=== PATIENT | male | born 1990 | race African-American/Black ===

== ENCOUNTER 2016-10-21 13:36 | Emergency (ER) ==
[2016-10-21] MEDS ORDERED: ZITHROMAX PO ONE (14:36)
[2016-10-21] MEDS ORDERED: ROCEPHIN IM ONE (14:36)
[2016-10-21] MEDS ORDERED: XYLOCAINE-MPF 1% INJ ONE (14:36)
[2016-10-21] MEDS ORDERED: FLAGYL PO ONE (14:36)
[2016-10-21] MEDS ORDERED: FLAGYL ONE ×2 (14:48→14:58)
--- NOTE | 2016-10-21 14:52 | PROVIDER DOCUMENTATION ---
HPI-Male Problem - General Source: patient - History of Present Illness-Male Location of Complaint: reports: urethral Radiation: reports: none Quality of Pain: reports: none Severity in ED: reports: mild Onset/Duration: reports: unsure, this morning Timing: reports: still present, constant Context/Activities at Onset: reports: none Urinary Symptoms: reports: no symptoms Sexual intercourse history: reports: Less Than 2 Months Ago, Single Partner Contraception: reports: none Associated Symptoms: reports: other (discharge) Associated Symptoms: reports: denies symptoms Similar Symptoms Previously?: Yes Recently seen or treated by another doctor?: No <Asaf Franks - Last Filed: 10/21/16 14:48> <Teresita Donato - Last Filed: 10/21/16 15:00> - General Chief Complaint: Male Stated Complaint: SORE THROAT Time Seen by Provider: 10/21/16 14:30 Allergies/Adverse Reactions: Patient Allergies Allergy/AdvReac Type Severity Reaction Status Date / Time No Known Allergies Allergy Verified 03/29/16 11:29 Home Medications: Home Medication List Medication Instructions Recorded Confirmed Last Taken Type No Home Medications 10/21/16 10/21/16 Unknown History - History of Present Illness-Male Nature of Presenting Problem: pt is a 26 y/o M that presents to the Er with white discharge from penis this am. concerned to have std. he recently had sex with new partner( believes its her fault, but had similar symptoms 6 years ago). Denies swelling to testicle or penis. (Asaf Franks) Review of Systems - Adult - REVIEW OF SYSTEMS - ADULT Constitutional: reports: no symptoms reported Eyes: reports: no symptoms reported Ears, Nose, Mouth & Throat: reports: no symptoms reported Cardiovascular: reports: no symptoms reported Respiratory: reports: no symptoms reported Gastrointestinal: reports: no symptoms reported Genitourinary: reports: discharge. denies: flank pain Musculoskeletal: reports: no symptoms reported Integumentary: reports: no symptoms reported Neurological: reports: no symptoms reported Psychiatric: reports: no symptoms reported Endocrine: reports: no symptoms reported Hematologic/Lymphatic: reports: no symptoms reported Allergic/Immunologic: reports: no symptoms reported All Other Systems: Reviewed and Negative <Asaf Franks - Last Filed: 10/21/16 14:48> Past History - Adult - PAST MEDICAL HISTORY-ADULT Review of Records: reports: Old Records Reviewed, Nursing Assessment Review, Medications Reviewed Major Childhood Illnesses: reports: denies history Cardiovascular: reports: denies history Respiratory: reports: denies history Gastrointestinal: reports: denies history Obstetrical/Gynecological: reports: denies history Genitourinary: reports: denies history Musculoskeletal: reports: denies history Neurological: reports: denies history Endocrine/Immune: reports: denies history Other Conditions: reports: denies history - PRIOR SURGERIES/PROCEDURES Surgical/Procedure History: reports: none - PRIOR HOSPITALIZATIONS Prior Hospitalizations: reports: none - IMMUNIZATION STATUS Childhood Immunizations: See Nurse Assessment Flu Vaccine: See Nurse Assessment - FAMILY HISTORY Family History: reviewed, not pertinent - SOCIAL HISTORY Smoking: cigarettes, less than 1 pack/day Alcohol Use Frequency: occasionally Living Situation: family <Asaf Franks - Last Filed: 10/21/16 14:48> Physical Exam-General - PHYSICAL EXAM-ADULT Initial Vital Signs Reviewed: Yes - CONSTITUTIONAL General Appearance: alert, no apparent distress - EYES Eyes: PERRL/EOMI, pink conjunctivae - HEAD, EARS, NOSE, MOUTH & THROAT HENMT: normocephalic/atraumatic, moist mucous membranes, normal ENT inspection - NECK Neck: non-tender, full range of motion, normal inspection - RESPIRATORY Respiratory: lungs clear, normal breath sounds, no respiratory distress, no accessory muscle use - CARDIOVASCULAR Cardiovascular: regular rate, rhythm, no edema, no murmur - GASTROINTESTINAL (ABDOMEN) Abdominal Exam: normal bowel sounds, non tender, soft, no organomegaly, no pulsatile mass - GENITOURINARY Male Genitalia: normal prostate, circumcised. negative: erythema, epididymal tenderness, herpes-like lesion, hernia mass - MUSCULOSKELETAL Back Exam: no CVA tenderness, no vertebral tenderness Extremity: normal range of motion, normal inspection - SKIN Integumentary: normal color, normal turgor, warm/dry - NEUROLOGIC Neurologic: grossly normal, no motor/sensory deficits - PSYCHIATRIC Psych/Mental Status: normal mood/affect, normal thought content, normal thought process, oriented x 3 <Asaf Franks - Last Filed: 10/21/16 14:48> Progress <Asaf Franks - Last Filed: 10/21/16 14:48> <Teresita Donato - Last Filed: 10/21/16 15:00> - PLAN OF CARE/RESULTS Progress/Plan/Lab Results: Vital Signs Temp Pulse Resp BP Pulse Ox 10/21/16 14:02 98 F 101 H 18 145/75 98 No Known Allergies Allergy (Verified 03/29/16 11:29) No Home Medications 10/21/16 Laboratory 10/21/16 14:53 Urine Source CLEAN CATCH Urine Color YELLOW Urine Clarity CLEAR Urine pH 7.0 Ur Specific Lyles 1.010 Urine Protein TRACE A Urine Ketones NEGATIVE Urine Blood NEGATIVE Urine Nitrite NEGATIVE Urine Bilirubin NEGATIVE Urine Urobilinogen NORMAL Urine WBC 1+ A Urine Glucose NEGATIVE Orders Category Date Time Status UA [URINALYSIS PL W/POSS RFLX CULT] [URINALYSIS] Stat Lab 10/21/16 14:53 Results Azithromycin [Zithromax] Med 10/21/16 14:36 Discontinued 1,000 mg PO NOW ONE CefTRIAXONE [Rocephin] Med 10/21/16 14:36 Discontinued 250 mg IM NOW ONE Lidocaine 1% Pf [Xylocaine-Mpf 1%] Med 10/21/16 14:36 Discontinued 5 ml INJ NOW ONE Metronidazole [Flagyl] Med 10/21/16 14:58 Discontinued 1,500 mg .ROUTE .STK-MED ONE Metronidazole [Flagyl] Med 10/21/16 14:36 Discontinued 2,000 mg PO NOW ONE Metronidazole [Flagyl] Med 10/21/16 14:48 Discontinued 500 mg .ROUTE .STK-MED ONE (Teresita Donato) Departure <Asaf Franks - Last Filed: 10/21/16 14:48> - Departure Time of Disposition Order: 15:00 Certified Medical Emergency: Emergent <Teresita Donato - Last Filed: 10/21/16 15:00> - Departure DIAGNOSIS: STD (male) Disposition: HOME 01 Condition: Stable Additional Instructions: You can go to the health department for STD testing ED Follow Up Instructions: You have been treated by a care provider in the Emergency Department. These instructions are being provided to you so you can have an understanding of how to care for yourself upon discharge. Upon discharge from the Emergency Department, you are responsible for making arrangements for follow-up care by a physician of your choice. Take all prescribed medications as directed. Return to the Emergency Department immediately for any new or worsening symptoms. You may call the Physician Referral phone number at [phone] to obtain a list of Physicians who are taking new patients. Attestation - Scribe Verification/Attestation Scribe:: Asaf Franks Acting as Scribe for:: Teresita Donato Scribe documention review:: This chart was documented by a scribe and accurately reflects the service the provider performed and the decisions made by the provider. - Physician/ EMILI Attestation Patient care was provided by Advanced Practice Provider:: Yes Advanced Practice Provider:: Teresita Donato Advanced Practice Provider documentation review:: The Mid-level provider documentation, treatment plan and medical decision making was reviewed by the physician who agrees with all treatment and medical decision making by the MLP. <Asaf Franks - Last Filed: 10/21/16 14:48> Physician Attestation - Physician Attestation I, the provider, attest to the following statement:: Teresita Donato Physician documentation Attestation:: This documentation recorded by the scribe accurately reflects the service I personally performed and the decisions made by me. <Asaf Franks - Last Filed: 10/21/16 14:48>
[2016-10-21 14:54] LABS: URINE SOURCE CLEAN CATCH
[2016-10-21 14:58] LABS: BILIRUBIN URINE NEGATIVE (NEGATIVE); BLOOD URINE NEGATIVE (NEGATIVE); CLARITY CLEAR (CLEAR); COLOR YELLOW; GLUCOSE URINE NEGATIVE (NEGATIVE); LEUKOCYTES URINE 1+ (NEGATIVE); NITRITE URINE NEGATIVE (NEGATIVE); PROTEIN URINE TRACE mg/dL (NEGATIVE); UROBILINOGEN URINE NORMAL
[2016-10-21 15:07] LABS: URINE CULTURE PL NEEDED? YES; URINE EPITHELIAL CELLS <10 /HPF (<10); URINE RBC <10 /HPF (<10)
[2016-10-21 15:42] VITALS: BP 134/079
== END 2016-10-21 15:35 | disposition home or self-care (01) ==
LOC: P.ED 13:36
DX: A64 Unspecified sexually transmitted disease (principal); R36.9 Urethral discharge, unspecified; F17.210 Nicotine dependence, cigarettes, uncomplicated
CPT/HCPCS: 81001; 87088; 96372; J0696

== ENCOUNTER 2016-10-26 03:32 | Emergency (ER) ==
[2016-10-26 03:38] VITALS: BP 150/74
--- NOTE | 2016-10-26 03:50 | PROVIDER DOCUMENTATION ---
HPI-Male Problem - General Chief Complaint: Male Stated Complaint: RETURN/RECHECK Time Seen by Provider: 10/26/16 03:41 Source: patient Allergies/Adverse Reactions: Patient Allergies Allergy/AdvReac Type Severity Reaction Status Date / Time No Known Allergies Allergy Verified 10/26/16 03:38 Home Medications: Home Medication List Medication Instructions Recorded Confirmed Last Taken Type No Home Medications 10/21/16 10/26/16 Unknown History - History of Present Illness-Male Nature of Presenting Problem: pt was recently seen for possible STD and given empiric treatment om 10/24/16. He now is concerned that there might be some swelling affecting the glands of his penis. He denies rash, dysuria, discharge or testicle pain or fever Review of Systems - Adult - REVIEW OF SYSTEMS - ADULT Constitutional: denies: chills, fever Eyes: denies: discharge Ears, Nose, Mouth & Throat: denies: ear pain, sinus problem, throat pain, throat swelling Cardiovascular: denies: chest pain Respiratory: denies: cough, shortness of breath Gastrointestinal: denies: abdominal pain, diarrhea, nausea, vomiting Genitourinary: reports: see HPI. denies: dysuria, discharge, frequency, flank pain, urinary retention, urgency Musculoskeletal: denies: back pain, muscle aches Integumentary: denies: rash Neurological: denies: headache/migraines Psychiatric: reports: no symptoms reported Endocrine: reports: no symptoms reported Hematologic/Lymphatic: reports: no symptoms reported Allergic/Immunologic: reports: no symptoms reported All Other Systems: Reviewed and Negative Past History - Adult - PAST MEDICAL HISTORY-ADULT Review of Records: reports: Old Records Reviewed, Nursing Assessment Review, Medications Reviewed, Social history reviewed & non-contributory. Major Childhood Illnesses: reports: denies history Cardiovascular: reports: denies history Respiratory: reports: denies history Gastrointestinal: reports: denies history Obstetrical/Gynecological: reports: denies history Genitourinary: reports: denies history Musculoskeletal: reports: denies history Neurological: reports: denies history Endocrine/Immune: reports: denies history Other Conditions: reports: denies history - PRIOR SURGERIES/PROCEDURES Surgical/Procedure History: reports: none - PRIOR HOSPITALIZATIONS Prior Hospitalizations: reports: none - IMMUNIZATION STATUS Childhood Immunizations: See Nurse Assessment Flu Vaccine: See Nurse Assessment - FAMILY HISTORY Family History: reviewed, not pertinent - SOCIAL HISTORY Smoking: less than 1 pack/day Substance Use: alcohol Alcohol Use Frequency: occasionally Living Situation: family Physical Exam-General - PHYSICAL EXAM-ADULT Initial Vital Signs Reviewed: Yes - CONSTITUTIONAL General Appearance: appears well, alert, no apparent distress - EYES Eyes: pink conjunctivae. negative: scleral icterus - HEAD, EARS, NOSE, MOUTH & THROAT HENMT: normocephalic/atraumatic - NECK Neck: non-tender, full range of motion, supple, normal inspection. negative: lymphadenopathy - RESPIRATORY Respiratory: chest non-tender, lungs clear, normal breath sounds, no pleuratic chest pain, no respiratory distress, no accessory muscle use - CARDIOVASCULAR Cardiovascular: regular rate, rhythm, no murmur - GASTROINTESTINAL (ABDOMEN) Abdominal Exam: normal bowel sounds, non tender, soft, no organomegaly, no pulsatile mass - GENITOURINARY Male Genitalia: normal genitalia, no hernia, uncircumcised. negative: erythema , epididymal tenderness, herpes-like lesion, hernia mass, inguinal lymphadenopathy, scrotal swelling, urethral discharge, inguinal tenderness, testicular tenderness - LYMPHATIC Lymphatic: no adenopathy - MUSCULOSKELETAL Back Exam: normal inspection, no CVA tenderness, no vertebral tenderness - SKIN Integumentary: normal color, normal turgor, warm/dry - NEUROLOGIC Neurologic: grossly normal, no motor/sensory deficits - PSYCHIATRIC Psych/Mental Status: normal mood/affect, normal thought content, normal thought process, oriented x 3 Progress - PLAN OF CARE/RESULTS Progress/Plan/Lab Results: Vital Signs Temp Pulse Resp BP Pulse Ox 10/26/16 03:34 99.3 F 95 H 20 150/74 99 No Known Allergies Allergy (Verified 10/26/16 03:38) No Home Medications 10/21/16 Departure - Departure Time of Disposition Order: 03:50 DIAGNOSIS: Anxiety about health Disposition: HOME 01 Certified Medical Emergency: Emergent Condition: Good Additional Instructions: ED Follow Up Instructions: You have been treated by a care provider in the Emergency Department. These instructions are being provided to you so you can have an understanding of how to care for yourself upon discharge. Upon discharge from the Emergency Department, you are responsible for making arrangements for follow-up care by a physician of your choice. Take all prescribed medications as directed. Return to the Emergency Department immediately for any new or worsening symptoms. You may call the Physician Referral phone number at [phone] to obtain a list of Physicians who are taking new patients. Referrals: Alisa Lynch MD [STAFF PHYSICIAN] - None,PCP [Primary Care Provider] - Forms: Return to School/Parent Work
== END 2016-10-26 03:58 | disposition home or self-care (01) ==
LOC: P.ED 03:32
DX: F06.4 Anxiety disorder due to known physiological condition (principal); F17.210 Nicotine dependence, cigarettes, uncomplicated
CPT/HCPCS: 99282